=== PATIENT | male | born 1970 | race African-American/Black ===

== ENCOUNTER 2016-09-07 15:27 | Outpatient (CLI) | payer OTHER | END 2016-09-07 15:28 | disposition home or self-care (01) | DX: E11.9 Type 2 diabetes mellitus without complications (principal); D64.9 Anemia, unspecified ==

== ENCOUNTER 2016-12-09 13:00 | Outpatient (CLI) | payer OTHER ==
[2016-12-09 19:35] LABS: HEMOGLOBIN A1C 0.7 g/dL
[2016-12-09 19:51] LABS: CALCIUM 8.9 mg/dL (8.5-10.3); POTASSIUM 4.1 mmol/L (3.5-5.0)
== END 2016-12-09 13:01 | disposition home or self-care (01) ==
LOC: LAB.N 13:00
PROVIDERS: ATTEND Family Medicine
DX: E11.9 Type 2 diabetes mellitus without complications (principal)
CPT/HCPCS: 36415; 80048; 83036

== ENCOUNTER 2016-12-13 07:08 | Day surgery (SDC) | payer OTHER ==
[2016-12-13] MEDS ORDERED: LACTATED RINGERS 1,000 ML IV ONE (07:18)
[2016-12-13] MEDS ORDERED: fentaNYL 100 MCG/2 ML VIAL IVP ONE (08:15)
[2016-12-13] MEDS ORDERED: MIDAZOLAM 2 MG/2 ML VIAL IVP ONE (08:15)
[2016-12-13 09:38] VITALS: BP 128/84
== END 2016-12-13 07:09 | disposition home or self-care (01) ==
LOC: SDS 07:08
PROVIDERS: ATTEND Surgery
PROC: 0DBN8ZX Excision of Sigmoid Colon, Via Natural or Artificial Opening Endoscopic, Diagnostic (ICD-10-PCS; principal; 2016-12-13 08:15)
DX: Z12.11 Encounter for screening for malignant neoplasm of colon (principal); D12.5 Benign neoplasm of sigmoid colon; K64.8 Other hemorrhoids; Z80.0 Family history of malignant neoplasm of digestive organs; E11.9 Type 2 diabetes mellitus without complications; E78.5 Hyperlipidemia, unspecified; E66.9 Obesity, unspecified
CPT/HCPCS: 45380; J7120

== ENCOUNTER 2017-03-15 08:00 | Outpatient (CLI) | payer OTHER ==
[2017-03-15 12:46] LABS: BASOPHILS % (AUTO) 0.6 %; EOSINOPHILS # (AUTO) 0.1 10^3/uL (0.0-0.7); EOSINOPHILS % (AUTO) 2.2 %; HCT - HEMATOCRIT 40.9 % (42.0-52.0); HGB - HEMOGLOBIN 13.5 g/dL (14.0-18.0); LYMPHOCYTES # (AUTO) 1.5 10^3/uL (1.5-3.5); LYMPHOCYTES % (AUTO) 45.3 %; MEAN CORPUSCULAR HEMOGLOBIN 26.6 pg (27.0-31.0); MEAN CORPUSCULAR VOLUME 80.7 fL (80.0-94.0); MEAN PLATELET VOLUME 8.1 fL (7.4-11.4); MONOCYTES # (AUTO) 0.3 10^3/uL (0.0-1.0); MONOCYTES % (AUTO) 7.7 %; NEUTROPHILS # (AUTO) 1.5 10^3/uL (1.5-6.6); NEUTROPHILS % (AUTO) 44.2 %; RED BLOOD COUNT 5.06 10^6/uL (4.70-6.10); RED CELL DISTRIBUTION WIDTH 14.8 % (12.0-15.0); UNCORRECTED WHITE BLOOD COUNT 3.4 x10^3/uL; WHITE BLOOD COUNT 3.4 x10^3/uL (4.8-10.8)
[2017-03-15 13:09] LABS: ALBUMIN/GLOBULIN RATIO 1.4 (1.0-2.2); BILIRUBIN,TOTAL 0.8 mg/dL (0.2-1.0); BUN - BLOOD UREA NITROGEN 6 mg/dL (6-20); CALCIUM 8.8 mg/dL (8.5-10.3); CARBON DIOXIDE - CO2 25 mmol/L (21-32); CHLORIDE 105 mmol/L (101-111); CHOL/HDL RATIO 6.3 (<5.0); CHOLESTEROL 209 mg/dL; GFR - MDRD 97 (>89); GLUCOSE 132 mg/dL (70-100); HDL CHOLESTEROL 33 mg/dL; LDL/HDL RATIO 3.9 (<3.6); POTASSIUM 3.8 mmol/L (3.5-5.0); SODIUM 135 mmol/L (135-145); TOTAL PROTEIN 7.3 g/dL (6.7-8.2); TRIGLYCERIDES 234 mg/dL; VLDL CHOLESTEROL 47 mg/dL
[2017-03-15 13:26] LABS: HEMOGLOBIN A1C 0.81 g/dL
== END 2017-03-15 08:01 | disposition home or self-care (01) ==
LOC: LAB.N 08:00
PROVIDERS: ATTEND Family Medicine
DX: E11.9 Type 2 diabetes mellitus without complications (principal); D64.9 Anemia, unspecified; E66.9 Obesity, unspecified
CPT/HCPCS: 36415; 80053; 80061; 83036; 85025

== ENCOUNTER 2017-07-21 08:00 | Outpatient (CLI) | payer OTHER ==
[2017-07-21 13:07] LABS: CALCIUM 8.9 mg/dL (8.5-10.3); CREATININE 0.9 mg/dL (0.6-1.2)
[2017-07-21 13:11] LABS: HEMOGLOBIN A1C 0.78 g/dL; HEMOGLOBIN A1C % 6.9 % (4.6-6.2)
== END 2017-07-21 08:01 | disposition home or self-care (01) ==
LOC: LAB.N 08:00
PROVIDERS: ATTEND Family Medicine
DX: E11.9 Type 2 diabetes mellitus without complications (principal)
CPT/HCPCS: 36415; 80048; 83036

== ENCOUNTER 2017-11-16 08:00 | Outpatient (CLI) | payer OTHER ==
[2017-11-16 13:49] LABS: HB2 TOTAL 15.5 g/dL; HEMOGLOBIN A1C 0.86 g/dL; HEMOGLOBIN A1C % 7.2 % (4.6-6.2)
[2017-11-16 14:16] LABS: CALCIUM 9.2 mg/dL (8.5-10.3); CREATININE 0.9 mg/dL (0.6-1.2)
== END 2017-11-16 08:01 | disposition home or self-care (01) ==
LOC: LAB.N 08:00
PROVIDERS: ATTEND Family Medicine
DX: E11.9 Type 2 diabetes mellitus without complications (principal)
CPT/HCPCS: 36415; 80048; 83036

== ENCOUNTER 2018-07-28 23:47 | Outpatient (CLI) | payer SELFPAY | END 2018-07-28 23:48 | disposition critical access hospital (66) | LOC: EMS 23:47 | PROVIDERS: ATTEND Surgery | DX: R55 Syncope and collapse (principal); R51 Headache; W18.30XA Fall on same level, unspecified, initial encounter; Y93.01 Activity, walking, marching and hiking; Y92.003 Bedroom of unspecified non-institutional (private) residence as the place of occurrence of the external cause; W22.03XA Walked into furniture, initial encounter | CPT/HCPCS: A0425; A0429 ==

== ENCOUNTER 2018-07-28 23:59 | Emergency (ER) | payer SELFPAY ==
--- NOTE | 2018-07-29 00:29 | ED Physician Documentation ---
PD HPI SYNCOPE - Stated complaint Stated Complaint: SYNCOPE, HIT HEAD - Chief complaint Chief Complaint: Neuro - History obtained from History obtained from: Patient - History of Present Illness Witnessed: Witnessed Timing - onset: How many minutes ago (approximately 20-30 minutes [employer]) Duration: Minutes Preceding symptoms: None Contributing factors: Just stood up Injury occurred: Fell Pain level max: 0 Pain level now: 0 Similar symptoms before: No diagnosis Recently seen: Not recently seen - Additional information Additional information: Patient was watching movie at home tonight and suddenly was going to laugh but he had just taken a drink of wine and thus stifled the laugh with mouth closed so as to avoid spitting out the wine. He stood up to go to the sink where he could spit out the wine, but upon standing, he had sudden syncopal episode. He does not recall any prodromal/warning symptoms. Family witnessed the event and d escribed complete LOC for less than a minute with shaking movements that sound neither like tonic stiffness nor rhythmic clonic activity. He then had sonorous breathing but within approximately 2 minutes, he had completely returned to baseline mental status. He has had two similar previous episodes under similar circumstances (laughing); he did not seek medical attention for the first episode, but had testing in an ED after the second episode. He recalls having EKG and blood work and was told the results were unremarkable and no further testing was recommended. He is currently asymptomatic. Review of Systems Eyes: reports: Reviewed and negative Cardiac: reports: Reviewed and negative Respiratory: reports: Reviewed and negative GI: reports: Reviewed and negative Neurologic: reports: Syncope, Head injury (struck head on floor but denies any CACERES or pain), LOC. denies: Generalized weakness, Focal weakness, Numbness, Confused, Altered mental status, Headache PD PAST MEDICAL HISTORY - Past Medical History Past Medical History: No - Past Surgical History Past Surgical History: No - Present Medications Home Medications: Ambulatory Orders Medication Instructions Recorded Confirmed No Known Home Medications 07/29/18 07/29/18 - Allergies Allergies/Adverse Reactions: Allergies Allergy/AdvReac Type Severity Reaction Status Date / Time No Known Drug Allergies Allergy Verified 07/29/18 00:09 - Social History Does the pt smoke?: No Smoking Status: Never smoker Does the pt drink ETOH?: Yes ETOH Use: Wine Does the pt have substance abuse?: No - Immunizations Immunizations are current?: Yes - POLST Patient has POLST: No PD ED PE NORMAL - Vitals Vital signs reviewed: Yes - General General: Alert and oriented X 3, No acute distress, Well developed/nourished - HEENT HEENT: PERRL, EOMI, Moist mucous membranes - Neck Neck: No bony TTP - Cardiac Cardiac: RRR, No murmur, No gallop, No rub - Respiratory Respiratory: No respiratory distress, Clear bilaterally - Abdomen Abdomen: Soft, Non tender - Neuro Neuro: Alert and oriented X 3, tube blower 2-12 intact, No motor deficit, No sensory deficit, Normal speech Eye Opening: Spontaneous Motor: Obeys Commands Verbal: Oriented GCS Score: 15 Results - Vitals Vitals: Vital Signs - 24 hr 07/29/18 07/29/18 07/29/18 00:00 00:55 01:29 Temperature 35.9 C L Heart Rate 82 78 82 Respiratory 18 15 19 Rate Blood Pressure 141/99 H 135/74 H 131/87 H O2 Saturation 100 99 98 07/29/18 01:58 Temperature 36.3 C L Heart Rate 88 Respiratory 14 Rate Blood Pressure 116/80 O2 Saturation 100 Oxygen O2 Source Room air - EKG (time done) No standard instances Rate: Rate (enter#) (74) Rhythm: NSR [place]: Normal Intervals: Normal NM QRS: Normal Ischemia: Normal ST segments Computer interpretation: Disagree with computer (no ST elevations) - Labs Labs: Laboratory Tests 07/29/18 07/29/18 07/29/18 00:30 00:30 00:30 WBC 4.6 L RBC 4.95 Hgb 13.9 L Hct 42.0 MCV 84.9 MCH 28.2 MCHC 33.2 RDW 14.6 Plt Count 273 MPV 7.0 L Neut # (Auto) 1.8 Lymph # (Auto) 2.3 Kaufman # (Auto) 0.3 Eos # (Auto) 0.1 Baso # (Auto) 0.0 Absolute Nucleated RBC 0.00 Nucleated RBC % 0.0 Sodium 134 L Potassium 3.9 Chloride 100 L Carbon Dioxide 26 Anion Gap 8.0 BUN 12 Creatinine 0.9 Estimated GFR (MDRD) 109 Glucose 152 H Calcium 9.0 Total Bilirubin 0.5 AST 43 H ALT 60 Alkaline Phosphatase 67 Troponin I < 0.04 Total Protein 7.6 Albumin 4.3 Globulin 3.3 Albumin/Globulin Ratio 1.3 Lipase 31 PD MEDICAL DECISION MAKING - ED course Complexity details: reviewed results, re-evaluated patient, considered differential, d/w patient, d/w family ED course: Remained asymptomatic during ED stay and NSR on monitoring specialist. Doubt neurologic etiology as primary event, such as seizure; family's description of event does not sound c/w tonic and/or clonic activity. Rapid return to baseline within few minutes would be unusual for post-ictal phase. Might benefit from Holter/event monitor to screen for dysrhytmia. The circumstances that led up to the syncopal event could trigger vasovagal event, which is most likely etiology. Departure - Departure Disposition: 01 Home, Self Care Clinical Impression: Syncope Condition: Good Instructions: ED Syncope Vasovagal, ED Fainting Unkn Cause Comments: Follow up with your primary care provider; they might recommend further testing, such as a Holter or event monitor. Discharge Date/Time: 07/29/18 02:00
[2018-07-29 00:37] LABS: BASOPHILS % (AUTO) 0.9 %; EOSINOPHILS # (AUTO) 0.1 10^3/uL (0.0-0.7); EOSINOPHILS % (AUTO) 1.7 %; HGB - HEMOGLOBIN 13.9 g/dL (14.0-18.0); LYMPHOCYTES # (AUTO) 2.3 10^3/uL (1.5-3.5); LYMPHOCYTES % (AUTO) 50.4 %; MEAN CORPUSCULAR HEMOGLOBIN 28.2 pg (27.0-31.0); MEAN CORPUSCULAR HGB CONC 33.2 g/dL (32.0-36.0); MEAN CORPUSCULAR VOLUME 84.9 fL (80.0-94.0); MONOCYTES # (AUTO) 0.3 10^3/uL (0.0-1.0); MONOCYTES % (AUTO) 7.5 %; NEUTROPHILS # (AUTO) 1.8 10^3/uL (1.5-6.6); NEUTROPHILS % (AUTO) 39.5 %; PLT - PLATELET COUNT 273 10^3/uL (130-450); RED BLOOD COUNT 4.95 10^6/uL (4.70-6.10); RED CELL DISTRIBUTION WIDTH 14.6 % (12.0-15.0); WHITE BLOOD COUNT 4.6 x10^3/uL (4.8-10.8)
[2018-07-29 00:47] LABS: ALBUMIN 4.3 g/dL (3.2-5.5); ALBUMIN/GLOBULIN RATIO 1.3 (1.0-2.2); BILIRUBIN,TOTAL 0.5 mg/dL (0.2-1.0); CREATININE 0.9 mg/dL (0.6-1.2); TOTAL PROTEIN 7.6 g/dL (6.7-8.2)
[2018-07-29 01:59] VITALS: BP 116/80
== END 2018-07-29 02:00 | disposition home or self-care (01) ==
LOC: EDUNIT# → ED 23:59
DX: R55 Syncope and collapse (principal); Z91.81 History of falling
CPT/HCPCS: 36415; 80053; 83690; 84484; 85025; 93005; 99283; 99285